=== PATIENT | female | born 1950 | race Caucasian/White ===

== ENCOUNTER 2019-08-07 10:39 | Outpatient (CLI) | payer OTHER, SELFPAY ==
--- NOTE | ~2019-08-07 | XR_ITS ---
EXAMINATION: XR knee RT 3V DATE: 08/07/2019 11:02 INDICATION: Chronic right knee pain TECHNIQUE: Three views of the right knee were obtained. COMPARISON: None. FINDINGS: Alignment is normal. No fracture or osteochondral lesion. There is tricompartmental osteoar thritis, moderate in the lateral patellofemoral compartments and severe in the medial compartment. Th ere is a small knee joint effusion. Soft tissues are unremarkable. IMPRESSION: 1. Tricompartmental osteoarthritis. Reviewed, dictated and finalized at location A.
== END 2019-08-07 10:40 | disposition home or self-care (01) ==
LOC: ANHIMG 10:45
PROVIDERS: PCP Family Medicine; Visit Provider Physician Assistant
DX: M17.11 Unilateral primary osteoarthritis, right knee (principal); G89.29 Other chronic pain
CPT/HCPCS: 73562

== ENCOUNTER 2019-08-21 11:58 | Outpatient (CLI) | payer OTHER, SELFPAY ==
--- NOTE | ~2019-08-21 | MM_ITS ---
MM diagnostic adrien BI w jay DATE: 08/21/2019 12:19 INDICATION: Screening TECHNIQUE: Digital ML, MLO and CC Tomosynthesis with composite 2-D views. Computer-aided detection. COMPARISON: 03/20/2018 bilateral diagnostic digital mammogram and limited left breast ultrasound 03/06/2018 bilateral digital screening mammogram DENSITY: There are scattered areas of fibroglandular density. FINDINGS: No suspicious mass or architectural distortion, malignant calcification, skin thickening or retraction or significant new or developing density is detected. IMPRESSION: BIRADS Category 1: Negative RECOMMENDATION: Routine mammographic screening Reviewed, dictated and finalized at Location A. Reviewed, dictated and finalized at location A.
== END 2019-08-21 11:59 | disposition home or self-care (01) ==
LOC: ANHIMG 11:59
PROVIDERS: PCP Family Medicine; Visit Provider Physician Assistant
DX: R92.8 Other abnormal and inconclusive findings on diagnostic imaging of breast (principal)
CPT/HCPCS: 77062; 77066; G0279

== ENCOUNTER 2019-10-14 11:37 | Outpatient (CLI) | payer OTHER, SELFPAY ==
--- NOTE | ~2019-10-14 | US_ITS ---
US breast RT limited 10/14/2019 12:31 Indication: Follow-up right breast asymmetries Procedure: High-resolution ultrasound of the right breast Comparison: No prior studies for comparison. Findings: There are 2 cysts in the right breast including a 3 mm cyst at 6:00 near the nipple and a 3 mm cyst at 6:00, 1 cm from the nipple. There is shadowing soft tissue posterior to the lateral lesio n of uncertain significance. Impression: 1: Probable benign right breast findings. Right breast cysts are identified, although there is an are a of shadowing without associated mass. BI-RADS CATEGORY 3-PROBABLY BENIGN FINDING RECOMMENDATION: Six-month follow-up diagnostic right mammogram and ultrasound recommended. Reviewed, dictated and finalized at location D. Impression: 1: Probable benign right breast findings. Right breast cysts are identified, al though there is an area of shadowing without associated mass. BI-RADS CATEGORY 3-PROBABLY BENIGN FINDING RECOMMENDATION: Six-month follow-up diagnostic right mammogram and ultrasound r ecommended.
== END 2019-10-14 11:38 | disposition home or self-care (01) ==
PROVIDERS: PCP Family Medicine; Visit Provider Physician Assistant
DX: R92.8 Other abnormal and inconclusive findings on diagnostic imaging of breast (principal)
CPT/HCPCS: 76642

== ENCOUNTER 2020-09-23 12:27 | Outpatient (CLI) | payer OTHER, SELFPAY ==
--- NOTE | ~2020-09-23 | MMUS_ITS ---
EXAMINATION: MM diagnostic adrien BI w jay, US breast RT limited HISTORY: Patient overdue for follow-up of a probably benign right breast asymmetry TECHNIQUE: Craniocaudal, mediolateral, and mediolateral oblique 3-D tomosynthesis image of the breast s were performed and synthetic 2-D images were generated. CAD analysis was submitted and interpreted. High resolution limited right breast ultrasound was performed. COMPARISON: 10/14/2019, 08/21/2019, 03/20/2018, 03/06/2018 BREAST PARENCHYMAL COMPOSITION: The breasts are heterogeneously dense, which may obscure small masses . FINDINGS: MAMMOGRAPHIC FINDINGS: Right breast: There is a persistent asymmetry in the posterior third of the outer breast 8 cm from th e nipple which has a stable appearance with spot compression when compared to prior mammograms. No patel spicious calcification or architectural distortion are identified. Left breast: There is stable focal asymmetry in the upper outer quadrant of the left breast. No suspi cious mass, calcification, or architectural distortion are identified. ULTRASOUND: There is a 5 mm x 3 mm oval, circumscribed, parallel, hypoechoic mass at the 7:00 location 6 cm from the nipple with no posterior features or internal vascularity. There is a 3 mm cyst at the 6:00 locat ion near the nipple. IMPRESSION: 1. Probably benign right breast mass. 2. Recommend 6 month follow-up right diagnostic mammogram and ultrasound. BI-RADS category 3, probably benign findings. Reviewed, dictated and finalized at location A. IMPRESSION: 1. Probably benign right breast mass. 2. Recommend 6 month follow-up right diagnostic mammogram and ultrasound. BI-RADS category 3, probably benign findings.
== END 2020-09-23 12:28 | disposition home or self-care (01) ==
LOC: ANHIMG 12:29
PROVIDERS: PCP Family Medicine; Visit Provider Physician Assistant
DX: R92.8 Other abnormal and inconclusive findings on diagnostic imaging of breast (principal)
CPT/HCPCS: 76642; 77062; 77066; G0279

== ENCOUNTER 2021-09-19 11:28 | Outpatient (CLI) | payer OTHER, SELFPAY ==
--- NOTE | ~2021-09-19 | MMUS_ITS ---
EXAMINATION: MM diagnostic adrien BI w jay, US breast RT limited HISTORY: Overdue six-month follow-up for probably benign right breast mass TECHNIQUE: Craniocaudal, mediolateral, and mediolateral oblique 3-D tomosynthesis images of the breas ts were performed and synthetic 2-D images were generated. CAD analysis was submitted and interpreted . High resolution limited right breast ultrasound was performed. COMPARISON: 09/23/2020, 10/14/2019, 03/20/2018, 03/06/2018 BREAST PARENCHYMAL COMPOSITION: The breasts are heterogeneously dense, which may obscure small masses . FINDINGS: MAMMOGRAPHIC FINDINGS: Right breast: There is a 9 mm mass in the posterior third of the lower-outer breast at 8:00 9 cm from the nipple. There is no associated architectural distortion or calcification. Left breast: Stable focal asymmetry is noted in the upper outer quadrant of the left breast. No suspi cious mass, calcification, or architectural distortion are identified. ULTRASOUND: There is a 7 mm cyst at the 7:00 location 6 cm from the nipple in the right breast. No suspicious cys tic or solid mass is identified. IMPRESSION: 1. No mammographic or sonographic evidence of malignancy. 2. Recommend routine screening mammography in one year. BI-RADS Category 2: Benign finding(s). Reviewed, dictated and finalized at location A. IMPRESSION: 1. No mammographic or sonographic evidence of malignancy. 2. Recommend routine screening mammography in one year. BI-RADS Category 2: Benign finding(s).
== END 2021-09-19 11:29 | disposition home or self-care (01) ==
PROVIDERS: PCP Family Medicine; Visit Provider Physician Assistant
DX: R92.8 Other abnormal and inconclusive findings on diagnostic imaging of breast (principal); N60.01 Solitary cyst of right breast
CPT/HCPCS: 76642; 77062; 77066; G0279

== ENCOUNTER 2023-04-11 09:54 | Outpatient (CLI) | payer OTHER, SELFPAY ==
--- NOTE | ~2023-04-11 | MM_ITS ---
EXAMINATION: MM screening adrien BI w jay HISTORY: Screening TECHNIQUE: Craniocaudal and mediolateral oblique 3-D tomosynthesis images were obtained and synthetic 2-D images were generated. CAD analysis was submitted and interpreted. COMPARISON: Comparison to multiple prior studies sequentially, with oldest reviewed study dated 02/09. BREAST PARENCHYMAL COMPOSITION: Not dense: There are scattered areas of fibroglandular density. FINDINGS: There is an enlarging mass in the upper outer quadrant of the right breast posteriorly. . L eft breast is stable without evidence for malignancy. IMPRESSION: 1. Enlarging right breast mass, upper outer quadrant posteriorly. 2. Additional mammographic views and possible breast ultrasound are recommended. BI-RADS Category 0: Incomplete: Needs additional imaging evaluation. Reviewed, dictated and finalized at location A. S MANAGER IMPRESSION: 1. Enlarging right breast mass, upper outer quadrant posteriorly. 2. Additional mammographic views and possible breast ultrasound are recommended . BI-RADS Category 0: Incomplete: Needs additional imaging evaluation.
== END 2023-04-11 09:55 | disposition home or self-care (01) ==
PROVIDERS: PCP Family Medicine; Visit Provider Physician Assistant
DX: Z12.31 Encounter for screening mammogram for malignant neoplasm of breast (principal); R92.8 Other abnormal and inconclusive findings on diagnostic imaging of breast
CPT/HCPCS: 77063; 77067

== ENCOUNTER 2023-05-10 10:22 | Outpatient (CLI) | payer OTHER, SELFPAY ==
--- NOTE | ~2023-05-10 | MMUS_ITS ---
EXAMINATION: MM diagnostic adrien RT w jay, US breast RT complete HISTORY: Follow-up enlarging right breast mass TECHNIQUE: Additional 3-D tomosynthesis images of the right breast were performed and synthetic 2-D i mages were generated. CAD analysis was submitted and interpreted. High resolution complete right shah[address] st ultrasound was performed. COMPARISON: Comparison to multiple prior studies sequentially, with oldest reviewed study dated 02/09. BREAST PARENCHYMAL COMPOSITION: Not dense: There are scattered areas of fibroglandular density. FINDINGS: MAMMOGRAPHIC FINDINGS: There is an enlarging mass in the upper outer quadrant of the right breast, middle-posterior depth. T he remainder of the right breast is not significantly changed. There are no suspicious calcifications or architectural distortion. ULTRASOUND: Complete US of all 4 quadrants of the right breast and retroareolar region was reviewed. At 3:00, 2 c m from the nipple there is a 2 mm cyst. At 9:00, 6 cm from the nipple there is a 10 x 9 x 8 mm cyst c orresponding to the mammographic finding. No suspicious masses to suggest malignancy. IMPRESSION: 1. No evidence for malignancy in the right breast. Benign findings. 2. Routine yearly screening mammogram and regular clinical breast examination are recommended. BI-RADS Category 2: Benign finding(s). Reviewed, dictated and finalized at location A. IC WORKS DIRECTOR IMPRESSION: 1. No evidence for malignancy in the right breast. Benign findings. 2. Routine yearly screening mammogram and regular clinical breast examination a re recommended. BI-RADS Category 2: Benign finding(s).
== END 2023-05-10 10:23 | disposition home or self-care (01) ==
LOC: ANHIMG 10:24
PROVIDERS: PCP Family Medicine; Visit Provider Physician Assistant
DX: N63.11 Unspecified lump in the right breast, upper outer quadrant (principal)
CPT/HCPCS: 76641; 77061; 77065; G0279

== ENCOUNTER → 2024-12-30 10:42 | Outpatient (CLI) | payer OTHER, SELFPAY ==
--- NOTE | ~2024-12-30 | XR_ITS ---
XR foot LT min 3V 12/30/2024 11:12 INDICATION: Left second toe pain PROCEDURE: 4 views left foot COMPARISON: No prior studies for comparison. FINDINGS: Fracture, dislocation or subluxation is not identified. Mild osteoarthritis of the first MTP joint. Lisfranc joint intact. Mild degenerative change of the ankle. No fracture, subluxation or dislocation. No focal soft tissue abnormality. No foreign bodies. Small degenerative calcaneal enthesop hytes. No foreign bodies are identified. IMPRESSION: 1: No acute bone or joint abnormality. 2: Mild polyarticular osteoarthritis. Reviewed, dictated and finalized at location O.
== END ==
LOC: EXPCRAD 10:46
PROVIDERS: PCP Physician Assistant; Visit Provider Physician Assistant
DX: S99.922A Unspecified injury of left foot, initial encounter (principal); X58.XXXA Exposure to other specified factors, initial encounter; M19.072 Primary osteoarthritis, left ankle and foot
CPT/HCPCS: 73630